=== PATIENT | female | born 1945 | race Caucasian/White ===

== ENCOUNTER 2016-04-23 10:25 | Emergency (ER) | payer MEDICARE, OTHER ==
[~2016-04-23 10:25] MED LIST: INDERAL40 MG PO; NEURONTIN400 MG PO; ULTRAM50 MG PO; XANAX0.5 MG PO; ZIPSOR25 MG PO
[2016-04-23] MEDS ORDERED: AMITRIPTYLINE H25 M2 PO (11:13)
[2016-04-23] MEDS ORDERED: ZIPSOR25 MG PO (11:14)
[2016-04-23] MEDS ORDERED: LOPRESSOR 550 MG/TAB PO (11:14)
[2016-04-23] MEDS ORDERED: TAMIFLU 75MG75 MG PO (15:36)
[2016-04-23 15:48] VITALS: BP 154/94
[2016-04-27] MEDS ORDERED: TOPROL XL 50MG50 MG PO (15:28)
== END 2016-04-23 16:06 | disposition home or self-care (01) ==
LOC: ED 10:25
DX: B34.9 Viral infection, unspecified (principal); J11.1 Influenza due to unidentified influenza virus with other respiratory manifestations
CPT/HCPCS: J7030; J7120

== ENCOUNTER 2016-04-27 15:36 | Emergency (ER) | payer MEDICARE, OTHER ==
[~2016-04-27 15:36] MED LIST changes: +AMITRIPTYLINE H25 M2 PO; +LOPRESSOR 550 MG/TAB PO; +TAMIFLU 75MG75 MG PO; +TOPROL XL 50MG50 MG PO
[2016-04-27] MEDS ORDERED: PREDNISONE20 M1 PO (17:15)
[2016-04-27] MEDS ORDERED: DOXYCYCLINE HY100 M5 PO (17:15)
== END 2016-04-27 18:45 | disposition home or self-care (01) ==
LOC: ED 15:36
DX: J40 Bronchitis, not specified as acute or chronic (principal)

== ENCOUNTER 2017-08-23 19:46 | Emergency (ER) | payer MEDICARE, OTHER ==
[~2017-08-23 19:46] MED LIST changes: +DOXYCYCLINE HY100 M5 PO; +PREDNISONE20 M1 PO; +ULTRAM50 M1 PO; -ULTRAM50 MG PO; +XANAX0.5 M1 PO; -XANAX0.5 MG PO
[2017-08-23 20:24] LABS: BASO # 0.1 (0.02-0.10); EOS # 0.1 (0.04-0.40); EOS % 2.1 % (1.0-5.0); HEMATOCRIT 43.4 % (37.0-47.0); HEMOGLOBIN 14.4 g/dL (12.5-16.0); LYMPH# 3.2 (1.50-4.00); MEAN CELL VOLUME 94 fl (78-100); MEAN CORPUSCULAR HEMOGLOBIN 31 pg (27-31); MEAN CORPUSCULAR HGB CONC 33 g/dL (33-37); MEAN PLATELET VOLUME 9.6 fl (7.4-10.4); MONO # 0.6 (0.20-0.80); NEU # 2.7 (1.40-6.50); PLATELET COUNT 154 K/mm3 (130-400); RED BLOOD COUNT 4.63 M/mm3 (4.10-5.30); RED CELL DISTRIBUTION WIDTH 13.2 % (11.5-14.5); WHITE BLOOD COUNT 6.7 K/mm3 (4.8-10.8)
[2017-08-23 20:35] LABS: ALBUMIN 4.4 g/dL (3.5-5.0); BUN/CREATININE RATIO 26.2 (6.0-26.0); CALCIUM 9.2 mg/dL (8.4-10.2); POTASSIUM 4.1 mmol/L (3.6-5.0); TOTAL BILIRUBIN 0.2 mg/dL (0.2-1.3); TOTAL PROTEIN 7.5 g/dL (6.3-8.2)
[2017-08-23 21:02] LABS: URINE APPEARANCE HAZY; URINE BILIRUBIN NEGATIVE (NEGATIVE); URINE BLOOD NEGATIVE (NEGATIVE); URINE COLOR LT YELLOW; URINE GLUCOSE NEGATIVE (NEGATIVE); URINE KETONE NEGATIVE (NEGATIVE); URINE LEUKOCYTE ESTERASE NEGATIVE (NEGATIVE); URINE MUCUS PRESENT (NOT PRESENT); URINE NITRATE NEGATIVE (NEGATIVE); URINE PROTEIN(semi-quant) TRACE mg/dL (NEGATIVE); URINE UROBILINOGEN NORMAL (NORMAL); URINE WBC 0-1 /hpf (0-3)
[2017-08-23 23:04] VITALS: BP 152/88
== END 2017-08-23 23:04 | disposition home or self-care (01) ==
LOC: ED 19:46
PROVIDERS: Family Medicine
DX: R55 Syncope and collapse (principal); T50.905A Adverse effect of unspecified drugs, medicaments and biological substances, initial encounter; G89.29 Other chronic pain; R51 Headache; R11.0 Nausea; I10 Essential (primary) hypertension
CPT/HCPCS: J2405; J7040

== ENCOUNTER 2019-04-07 18:27 | Emergency (ER) | payer MEDICARE, OTHER ==
[~2019-04-07] VITALS: Ht 167.6 cm; Wt 85.9 kg
[2019-04-07 19:16] LABS: BASO # 0.1 (0.02-0.10); EOS # 0.1 (0.04-0.40); EOS % 1.7 % (1.0-5.0); HEMATOCRIT 44.9 % (37.0-47.0); HEMOGLOBIN 14.7 g/dL (12.5-16.0); LYMPH# 2.1 (1.50-4.00); MEAN CELL VOLUME 96 fl (78-100); MEAN CORPUSCULAR HEMOGLOBIN 31 pg (27-31); MEAN CORPUSCULAR HGB CONC 33 g/dL (33-37); MEAN PLATELET VOLUME 9.6 fl (7.4-10.4); MONO # 0.6 (0.20-0.80); NEU # 4.3 (1.40-6.50); PLATELET COUNT 159 K/mm3 (130-400); RED BLOOD COUNT 4.69 M/mm3 (4.10-5.30); RED CELL DISTRIBUTION WIDTH 13.4 % (11.5-14.5); WHITE BLOOD COUNT 7.1 K/mm3 (4.8-10.8)
[2019-04-07 19:22] LABS: ALBUMIN 4.1 g/dL (3.4-4.8); POTASSIUM 4.1 mmol/L (3.5-5.1)
[2019-04-07 19:24] LABS: CALCIUM 9.3 mg/dL (8.3-10.5)
[2019-04-07 19:27] LABS: TOTAL BILIRUBIN 0.4 mg/dL (0.2-1.2)
[2019-04-07 19:36] LABS: D-DIMER 0.52 mg/L FEU (0.15-0.50)
[2019-04-07 19:38] LABS: TROPONIN-I 0.03 ng/mL (<0.030)
[2019-04-07 19:52] LABS: PH-URINE 6.5 (5.0 - 8.0); URINE APPEARANCE CLEAR; URINE COLOR YELLOW; URINE GLUCOSE NEGATIVE (NEGATIVE); URINE KETONE NEGATIVE (NEGATIVE); URINE PROTEIN(semi-quant) NEGATIVE (NEGATIVE)
[2019-04-07 19:53] LABS: URINE BILIRUBIN NEGATIVE (NEGATIVE); URINE BLOOD NEGATIVE (NEGATIVE); URINE LEUKOCYTE ESTERASE NEGATIVE (NEGATIVE); URINE MUCUS PRESENT (NOT PRESENT); URINE NITRATE NEGATIVE (NEGATIVE); URINE UROBILINOGEN NORMAL (NORMAL)
[2019-04-07 22:24] VITALS: BP 178/122
== END 2019-04-07 22:24 | disposition short-term general hospital (02) ==
LOC: ED 18:27
PROVIDERS: Nurse Practitioner Family
DX: J18.9 Pneumonia, unspecified organism (principal); I16.1 Hypertensive emergency; I10 Essential (primary) hypertension; G43.909 Migraine, unspecified, not intractable, without status migrainosus; G90.511 Complex regional pain syndrome I of right upper limb
CPT/HCPCS: A4216; J0696; J7030

== ENCOUNTER → 2019-04-15 | Outpatient (CLI) | payer MEDICARE, OTHER ==
[2019-04-07 22:24] VITALS: BP 178/122
[2019-04-15 14:29] LABS: POTASSIUM 4.6 mmol/L (3.5-5.1)
[2019-04-15 14:30] LABS: CALCIUM 9.8 mg/dL (8.3-10.5)
== END ==
LOC: LAB 14:00
PROVIDERS: Family Medicine
DX: I48.91 Unspecified atrial fibrillation (principal); I11.0 Hypertensive heart disease with heart failure; I50.30 Unspecified diastolic (congestive) heart failure

== ENCOUNTER 2019-09-08 22:00 | Observation (INO) | payer MEDICARE, OTHER ==
[~2019-09-08] VITALS: Ht 170.2 cm; Wt 88.8 kg
[~2019-09-08 22:00] MED LIST changes: +NEURONTIN400 M1 PO; -NEURONTIN400 MG PO
[2019-09-08 22:17] VITALS: BP 117/74
[2019-09-08 22:41] LABS: BASO # 0.1 (0.02-0.10); EOS # 0.3 (0.04-0.40); EOS % 2.7 % (1.0-5.0); HEMATOCRIT 40.7 % (37.0-47.0); HEMOGLOBIN 13.1 g/dL (12.5-16.0); LYMPH# 2.5 (1.50-4.00); MEAN CELL VOLUME 92 fl (78-100); MEAN CORPUSCULAR HEMOGLOBIN 30 pg (27-31); MEAN CORPUSCULAR HGB CONC 32 g/dL (33-37); MEAN PLATELET VOLUME 9.4 fl (7.4-10.4); NEU # 5.4 (1.40-6.50); PLATELET COUNT 219 K/mm3 (130-400); RED BLOOD COUNT 4.44 M/mm3 (4.10-5.30); RED CELL DISTRIBUTION WIDTH 13.3 % (11.5-14.5); WHITE BLOOD COUNT 9.3 K/mm3 (4.8-10.8)
[2019-09-08 22:52] LABS: POTASSIUM 4.2 mmol/L (3.5-5.1); SODIUM 139 mmol/L (136-145)
[2019-09-08 22:53] LABS: CALCIUM 8.5 mg/dL (8.3-10.5)
[2019-09-08 22:54] LABS: GLUCOSE 131 mg/dL (65-105); TOTAL PROTEIN 6.9 g/dL (6.2-8.1)
[2019-09-08 22:55] LABS: CARBON DIOXIDE 25 mmol/L (23-31)
[2019-09-08 22:56] LABS: TOTAL BILIRUBIN 0.4 mg/dL (0.2-1.2)
[2019-09-08 22:59] LABS: AST-SGOT 29 U/L (5-34)
[2019-09-08 23:01] LABS: ALT/SGPT 43 U/L (0-55)
[2019-09-08 23:10] LABS: PROTHROMBIN TIME 13.8 SECONDS (9.0-12.0); TROPONIN-I < 0.03 ng/mL (<0.030)
[2019-09-08 23:11] LABS: URINE APPEARANCE CLOUDY; URINE BILIRUBIN NEGATIVE (NEGATIVE); URINE BLOOD NEGATIVE (NEGATIVE); URINE COLOR YELLOW; URINE GLUCOSE NEGATIVE (NEGATIVE); URINE KETONE NEGATIVE (NEGATIVE); URINE LEUKOCYTE ESTERASE TRACE (NEGATIVE); URINE NITRATE NEGATIVE (NEGATIVE); URINE PROTEIN(semi-quant) TRACE mg/dL (NEGATIVE); URINE UROBILINOGEN NORMAL (NORMAL)
[2019-09-08 23:11] LABS: D-DIMER 0.33 mg/L FEU (0.15-0.50)
[2019-09-08 23:20] LABS: URINE MUCUS PRESENT (NOT PRESENT)
[2019-09-08] MEDS ORDERED: XARELTO20 MG PO (23:58)
[2019-09-09] VITALS (10 sets, daily range): BP systolic 95–136; BP diastolic 57–79
[2019-09-09] MEDS ORDERED: FUROSEMIDE20 MG PO
[2019-09-09] MEDS ORDERED: DILTIAZEM HCL60 MG PO (00:01)
[2019-09-09] MEDS ORDERED: ATORVASTATIN CA20 MG PO (00:03)
[2019-09-09] MEDS ORDERED: ASPIRIN ADULT L81 M3 PO (00:03)
[2019-09-09] MEDS ORDERED: CARVEDILOL6.25 MG PO (00:04)
[2019-09-09] MEDS ORDERED: ISOSORBIDE30 MG PO (00:05)
[2019-09-09] MEDS ORDERED: PROAIR HFA0.09 MG/AC IH (00:06)
[2019-09-09 07:17] LABS: BASO # 0.1 (0.02-0.10); EOS # 0.2 (0.04-0.40); EOS % 2.7 % (1.0-5.0); HEMATOCRIT 39.8 % (37.0-47.0); HEMOGLOBIN 12.7 g/dL (12.5-16.0); LYMPH# 2.4 (1.50-4.00); MEAN CELL VOLUME 92 fl (78-100); MEAN CORPUSCULAR HEMOGLOBIN 29 pg (27-31); MEAN CORPUSCULAR HGB CONC 32 g/dL (33-37); MEAN PLATELET VOLUME 9.5 fl (7.4-10.4); MONO # 0.7 (0.20-0.80); NEU # 3.3 (1.40-6.50); PLATELET COUNT 177 K/mm3 (130-400); RED BLOOD COUNT 4.33 M/mm3 (4.10-5.30); RED CELL DISTRIBUTION WIDTH 13.2 % (11.5-14.5); WHITE BLOOD COUNT 6.6 K/mm3 (4.8-10.8)
[2019-09-09 07:25] LABS: POTASSIUM 4.3 mmol/L (3.5-5.1); SODIUM 142 mmol/L (136-145)
[2019-09-09 07:27] LABS: CALCIUM 8.6 mg/dL (8.3-10.5); GLUCOSE 113 mg/dL (65-105)
[2019-09-09 07:28] LABS: CARBON DIOXIDE 27 mmol/L (23-31)
[2019-09-09 08:44] LABS: TROPONIN-I < 0.03 ng/mL (<0.030)
== END 2019-09-09 18:05 | disposition home or self-care (01) ==
LOC: ED 22:00 → MED/SURG 23:57 → ED 23:57 → MED/SURG 23:57
PROVIDERS: ADMIT Nurse Practitioner Family
DX: N17.9 Acute kidney failure, unspecified (principal); E86.9 Volume depletion, unspecified; I95.1 Orthostatic hypotension; I48.0 Paroxysmal atrial fibrillation; I25.10 Atherosclerotic heart disease of native coronary artery without angina pectoris; I11.0 Hypertensive heart disease with heart failure; I50.30 Unspecified diastolic (congestive) heart failure; Z79.01 Long term (current) use of anticoagulants; E78.5 Hyperlipidemia, unspecified; Z79.82 Long term (current) use of aspirin; Z79.899 Other long term (current) drug therapy
CPT/HCPCS: J7030

== ENCOUNTER → 2019-09-12 | Outpatient (CLI) | payer MEDICARE, OTHER ==
[2019-09-09 18:17] VITALS: BP 136/70
[~2019-09-12] MED LIST changes: +ASPIRIN ADULT L81 M3 PO; +ATORVASTATIN CA20 MG PO; +CARVEDILOL6.25 MG PO; +DILTIAZEM HCL60 MG PO; +FUROSEMIDE20 MG PO; +ISOSORBIDE30 MG PO; +PROAIR HFA0.09 MG/AC IH; +XARELTO20 MG PO
== END ==
LOC: RAD 15:45 → VAS 15:50
DX: I08.0 Rheumatic disorders of both mitral and aortic valves (principal)

== ENCOUNTER → 2019-09-19 | Outpatient (CLI) | payer MEDICARE, OTHER ==
[2019-09-09 18:17] VITALS: BP 136/70
[2019-09-19 16:38] LABS: HEMATOCRIT 43.2 % (37.0-47.0); HEMOGLOBIN 13.9 g/dL (12.5-16.0); MEAN PLATELET VOLUME 9.3 fl (7.4-10.4); RED BLOOD COUNT 4.72 M/mm3 (4.10-5.30); RED CELL DISTRIBUTION WIDTH 13.3 % (11.5-14.5); WHITE BLOOD COUNT 8.7 K/mm3 (4.8-10.8)
[2019-09-19 16:52] LABS: POTASSIUM 4.6 mmol/L (3.5-5.1)
[2019-09-19 16:53] LABS: CALCIUM 9.8 mg/dL (8.3-10.5)
== END ==
LOC: LAB 16:17
PROVIDERS: Family Medicine
DX: R53.83 Other fatigue (principal)

== ENCOUNTER → 2020-01-09 | Outpatient (CLI) | payer MEDICARE, OTHER ==
[2019-09-09 18:17] VITALS: BP 136/70
== END ==
LOC: LAB 14:11
DX: I25.10 Atherosclerotic heart disease of native coronary artery without angina pectoris (principal); R53.83 Other fatigue

== ENCOUNTER → 2020-01-10 | Outpatient (CLI) | payer MEDICARE, OTHER ==
[2019-09-09 18:17] VITALS: BP 136/70
[2020-01-10 11:29] LABS: HEMATOCRIT 44.2 % (37.0-47.0); HEMOGLOBIN 13.9 g/dL (12.5-16.0); MEAN PLATELET VOLUME 9.2 fl (7.4-10.4); RED BLOOD COUNT 4.81 M/mm3 (4.10-5.30); RED CELL DISTRIBUTION WIDTH 13.7 % (11.5-14.5)
== END ==
LOC: LAB 11:08
DX: I25.10 Atherosclerotic heart disease of native coronary artery without angina pectoris (principal); R53.83 Other fatigue

== ENCOUNTER → 2020-07-13 | Outpatient (CLI) | payer MEDICARE, OTHER ==
[2019-09-09 18:17] VITALS: BP 136/70
[~2020-07-13] MED LIST changes: +AEROSOL THERAPY1 DEV INH; +ALBUTEROL2.5 MG/3 M IH; +MORGIDOX 1X100100 MG PO; +MUCINEX 60600 MG/TA1 PO; +PREDNISONE20 MG PO; +TESSALON PERLE100 M1 PO; +ZYRTEC ALLERGY10 MG PO
[2020-07-14 09:08] LABS: ALTERNARIA TENUIS CNT <0.10 kU/L (()); ASPERGILLUS FUMIGATUS AL COUNT <0.10 kU/L (()); CAT DANDER ALLERGEN COUNT <0.10 kU/L (()); CLADOSPORIUM ALLERGEN COUNT <0.10 kU/L (()); COCKROACH ALLERGEN COUNT <0.10 kU/L (()); DOG DANDER ALLERGEN COUNT <0.10 kU/L (()); DUST MITES (D.F.) ALLERG COUNT <0.10 kU/L (()); DUST MITES (D.P.) ALLERG COUNT <0.10 kU/L (()); ELM TREE ALLERGEN COUNT <0.10 kU/L (()); SHORT RAGWEED ALLERGEN COUNT <0.10 kU/L (())
[2020-07-14 09:09] LABS: BERMUDA GRASS ALLERGEN COUNT <0.10 kU/L (()); BOX ELDER-MAPLE ALLERGEN COUNT <0.10 kU/L (()); COTTONWOOD TREE ALLERGEN COUNT <0.10 kU/L (()); FIREBUSH ALLERGEN COUNT <0.10 kU/L (()); OAK ALLERGEN COUNT <0.10 kU/L (()); ROUGH MARSH ELDER ALLERG COUNT <0.10 kU/L (()); RUSSIAN THISTLE ALLERGEN COUNT <0.10 kU/L (())
== END ==
LOC: LAB 13:00
PROVIDERS: Internal Medicine Pulmonary Disease
DX: J45.909 Unspecified asthma, uncomplicated (principal)

== ENCOUNTER → 2020-07-17 | Outpatient (CLI) | payer MEDICARE, OTHER ==
[2019-09-09 18:17] VITALS: BP 136/70
[2020-07-17 15:00] LABS: BASO # 0.1 (0.02-0.10); EOS # 0.3 (0.04-0.40); EOS % 3.3 % (1.0-5.0); HEMATOCRIT 45.4 % (37.0-47.0); LYMPH# 2.4 (1.50-4.00); MEAN CELL VOLUME 92 fl (78-100); MEAN CORPUSCULAR HEMOGLOBIN 28 pg (27-31); MEAN CORPUSCULAR HGB CONC 31 g/dL (33-37); MEAN PLATELET VOLUME 9.3 fl (7.4-10.4); MONO # 0.6 (0.20-0.80); NEU # 4.1 (1.40-6.50); PLATELET COUNT 237 K/mm3 (130-400); RED BLOOD COUNT 4.93 M/mm3 (4.10-5.30); RED CELL DISTRIBUTION WIDTH 14.7 % (11.5-14.5); WHITE BLOOD COUNT 7.5 K/mm3 (4.8-10.8)
== END ==
LOC: LAB 14:38
PROVIDERS: Internal Medicine Pulmonary Disease
DX: J45.909 Unspecified asthma, uncomplicated (principal)

== ENCOUNTER 2020-12-05 14:06 | Outpatient (RCR) | payer MEDICARE, OTHER ==
[~2020-12-05 14:06] MED LIST changes: -AEROSOL THERAPY1 DEV INH; -ALBUTEROL2.5 MG/3 M IH; -MORGIDOX 1X100100 MG PO; -MUCINEX 60600 MG/TA1 PO; -PREDNISONE20 MG PO; -TESSALON PERLE100 M1 PO; -ZYRTEC ALLERGY10 MG PO
[2021-02-08] MEDS ORDERED: AEROSOL THERAPY1 DEV INH (16:51)
[2021-02-08] MEDS ORDERED: ALBUTEROL2.5 MG/3 M IH (16:51)
[2021-02-08] MEDS ORDERED: MORGIDOX 1X100100 MG PO (16:51)
[2021-02-08] MEDS ORDERED: PREDNISONE20 MG PO (16:51)
[2021-02-08] MEDS ORDERED: MUCINEX 60600 MG/TA1 PO (16:58)
[2021-02-08] MEDS ORDERED: TESSALON PERLE100 M1 PO (16:58)
[2021-02-08] MEDS ORDERED: ZYRTEC ALLERGY10 MG PO (17:07)
== END 2021-03-05 | disposition home or self-care (01) ==
LOC: PT
DX: M70.61 Trochanteric bursitis, right hip (principal)

== ENCOUNTER 2021-02-08 13:39 | Emergency (ER) | payer MEDICARE, OTHER ==
[~2021-02-08] VITALS: Ht 170.2 cm; Wt 88.6 kg
[2021-02-08 14:13] LABS: BASO # 0.06 K/mm3 (0.02-0.10); EOS # 0.22 K/mm3 (0.04-0.40); EOS % 2.5 % (1.0-5.0); HEMATOCRIT 47.1 % (37.0-47.0); LYMPH# 1.51 K/mm3 (1.50-4.00); MEAN CELL VOLUME 90 fl (78-100); MEAN CORPUSCULAR HEMOGLOBIN 29 pg (27-31); MEAN CORPUSCULAR HGB CONC 32 g/dL (33-37); MEAN PLATELET VOLUME 9.5 fl (7.4-10.4); MONO # 0.88 K/mm3 (0.20-0.80); NEU # 6.06 K/mm3 (1.40-6.50); PLATELET COUNT 223 K/mm3 (130-400); RED BLOOD COUNT 5.26 M/mm3 (4.10-5.30); RED CELL DISTRIBUTION WIDTH 13.2 % (11.5-14.5); WHITE BLOOD COUNT 8.7 K/mm3 (4.8-10.8)
[2021-02-08 14:31] LABS: ALBUMIN 4.2 g/dL (3.4-4.8)
[2021-02-08 14:32] LABS: POTASSIUM 4.4 mmol/L (3.5-5.1)
[2021-02-08 14:34] LABS: TOTAL PROTEIN 7.8 g/dL (6.2-8.1)
[2021-02-08 14:36] LABS: TOTAL BILIRUBIN 0.7 mg/dL (0.2-1.2)
[2021-02-08] MEDS ORDERED: ALBUTEROL2.5 MG/3 M IH (16:51)
[2021-02-08] MEDS ORDERED: PREDNISONE20 MG PO (16:51)
[2021-02-08] MEDS ORDERED: MORGIDOX 1X100100 MG PO (16:51)
[2021-02-08] MEDS ORDERED: AEROSOL THERAPY1 DEV INH (16:51)
[2021-02-08] MEDS ORDERED: TESSALON PERLE100 M1 PO (16:58)
[2021-02-08] MEDS ORDERED: MUCINEX 60600 MG/TA1 PO (16:58)
[2021-02-08] MEDS ORDERED: ZYRTEC ALLERGY10 MG PO (17:07)
[2021-02-08 17:33] VITALS: BP 126/82
== END 2021-02-08 17:34 | disposition home or self-care (01) ==
LOC: ED 13:39
PROVIDERS: Nurse Practitioner
DX: R06.02 Shortness of breath (principal); J44.9 Chronic obstructive pulmonary disease, unspecified; I48.91 Unspecified atrial fibrillation; G47.00 Insomnia, unspecified; I11.0 Hypertensive heart disease with heart failure; I50.9 Heart failure, unspecified; G43.909 Migraine, unspecified, not intractable, without status migrainosus; E66.9 Obesity, unspecified; Z79.01 Long term (current) use of anticoagulants; Z20.822 Contact with and (suspected) exposure to COVID-19; Z79.82 Long term (current) use of aspirin; Z79.899 Other long term (current) drug therapy; Z68.30 Body mass index [BMI] 30.0-30.9, adult
CPT/HCPCS: J7512

== ENCOUNTER → 2021-08-03 | Outpatient (CLI) | payer MEDICARE, OTHER ==
[~2021-08-03] MED LIST changes: +AEROSOL THERAPY1 DEV INH; +ALBUTEROL2.5 MG/3 M IH; +MORGIDOX 1X100100 MG PO; +MUCINEX 60600 MG/TA1 PO; +PREDNISONE20 MG PO; +TESSALON PERLE100 M1 PO; +ZYRTEC ALLERGY10 MG PO
== END ==
LOC: LAB 06:57
DX: Z20.822 Contact with and (suspected) exposure to COVID-19 (principal)

== ENCOUNTER → 2021-09-19 | Outpatient (CLI) | payer MEDICARE, OTHER | LOC: LAB 12:29 | DX: J98.4 Other disorders of lung (principal); I50.32 Chronic diastolic (congestive) heart failure; I48.91 Unspecified atrial fibrillation; I10 Essential (primary) hypertension; Z20.822 Contact with and (suspected) exposure to COVID-19 ==

== ENCOUNTER 2022-07-26 00:59 | Emergency (ER) | payer MEDICARE, OTHER ==
[~2022-07-26] VITALS: Wt 93.1 kg
[2022-07-26] MEDS ORDERED: DICLOFENAC SOD50 MG PO (01:13)
[2022-07-26 02:28] LABS: ALBUMIN 4.1 g/dL (3.4-4.8); BASO # 0.06 K/mm3 (0.02-0.10); EOS # 0.17 K/mm3 (0.04-0.40); EOS % 1.8 % (1.0-5.0); HEMATOCRIT 42.8 % (37.0-47.0); HEMOGLOBIN 13.7 g/dL (12.5-16.0); LYMPH# 1.82 K/mm3 (1.50-4.00); MEAN CELL VOLUME 90 fl (78-100); MEAN CORPUSCULAR HEMOGLOBIN 29 pg (27-31); MEAN CORPUSCULAR HGB CONC 32 g/dL (33-37); MEAN PLATELET VOLUME 9.7 fl (7.4-10.4); MONO # 0.66 K/mm3 (0.20-0.80); NEU # 6.79 K/mm3 (1.40-6.50); PLATELET COUNT 184 K/mm3 (130-400); POTASSIUM 4.1 mmol/L (3.5-5.1); RED BLOOD COUNT 4.78 M/mm3 (4.10-5.30); RED CELL DISTRIBUTION WIDTH 13.1 % (11.5-14.5); WHITE BLOOD COUNT 9.5 K/mm3 (4.8-10.8)
[2022-07-26 02:30] LABS: CALCIUM 9.7 mg/dL (8.3-10.5)
[2022-07-26 02:33] LABS: TOTAL BILIRUBIN 0.4 mg/dL (0.2-1.2)
[2022-07-26 02:38] LABS: URINE APPEARANCE CLEAR; URINE COLOR YELLOW
[2022-07-26 02:39] LABS: URINE BILIRUBIN NEGATIVE (NEGATIVE); URINE BLOOD NEGATIVE (NEGATIVE); URINE GLUCOSE NEGATIVE (NEGATIVE); URINE KETONE NEGATIVE (NEGATIVE); URINE LEUKOCYTE ESTERASE TRACE (NEGATIVE); URINE NITRATE NEGATIVE (NEGATIVE); URINE PROTEIN(semi-quant) 1+ (NEGATIVE); URINE UROBILINOGEN NORMAL (NORMAL)
[2022-07-26 08:50] VITALS: BP 142/82
== END 2022-07-26 09:14 | disposition home or self-care (01) ==
LOC: ED 00:59
PROVIDERS: Family Medicine
DX: R11.2 Nausea with vomiting, unspecified (principal); T50.905A Adverse effect of unspecified drugs, medicaments and biological substances, initial encounter; E66.9 Obesity, unspecified
CPT/HCPCS: J3490; J7030

== ENCOUNTER → 2023-05-04 | Outpatient (CLI) | payer MEDICARE, OTHER ==
[~2023-05-04] MED LIST changes: +DICLOFENAC SOD50 MG PO
== END ==
LOC: RAD 14:53
DX: I51.7 Cardiomegaly (principal); J20.9 Acute bronchitis, unspecified

== ENCOUNTER → 2023-05-15 | Outpatient (CLI) | payer MEDICARE, OTHER | LOC: LAB 09:55 | DX: R06.02 Shortness of breath (principal) ==

== ENCOUNTER → 2023-06-26 | Outpatient (CLI) | payer MEDICARE, OTHER | LOC: RAD 11:59 | DX: R05.3 Chronic cough (principal) ==

== ENCOUNTER → 2023-11-13 | Outpatient (CLI) | payer MEDICARE, OTHER ==
[2023-11-13 10:00] LABS: CALCIUM 10.2 mg/dL (8.3-10.5)
== END ==
LOC: LAB 09:21
PROVIDERS: Family Medicine
DX: Z13.1 Encounter for screening for diabetes mellitus (principal); I10 Essential (primary) hypertension; E78.5 Hyperlipidemia, unspecified

== ENCOUNTER → 2024-05-13 | Outpatient (CLI) | payer MEDICARE, OTHER | LOC: LAB 09:52 | PROVIDERS: Family Medicine | DX: I10 Essential (primary) hypertension (principal) ==

== ENCOUNTER → 2024-07-06 | Outpatient (CLI) | payer MEDICARE, OTHER | LOC: VAS 15:56 → RAD 16:30 | DX: I27.20 Pulmonary hypertension, unspecified (principal) ==